=== PATIENT | female | born 1965 | race Caucasian/White ===

== ENCOUNTER → 2023-09-15 08:59 | Outpatient (REF) | payer BC, SELFPAY | LOC: RAD 08:59 | PROVIDERS: ATTENDING PHYSICIAN Family Medicine | DX: Z13.820 Encounter for screening for osteoporosis (principal); N95.1 Menopausal and female climacteric states | CPT/HCPCS: 77080 ==

== ENCOUNTER → 2025-02-04 12:04 | Outpatient (REF) | payer SELFPAY | LOC: RAD 12:04 | PROVIDERS: ATTENDING PHYSICIAN Family Medicine | DX: E78.5 Hyperlipidemia, unspecified (principal); E78.41 Elevated Lipoprotein(a); N95.1 Menopausal and female climacteric states | CPT/HCPCS: 75571 ==